=== PATIENT | male | born 1990 | race Caucasian/White ===

== ENCOUNTER 2019-08-08 16:53 | Emergency (ER) | payer SELFPAY ==
[2019-08-08 16:58] VITALS: BP 144/81
[2019-08-08] MEDS ORDERED: LIDOCAINE 1% INJ-PF (10 MG/ML) 30 ML SDV INJ ONE (17:26)
--- NOTE | 2019-08-08 17:28 | ER Document Report ---
HPI - HPI Time Seen by Provider: 08/08/19 17:18 Context: Patient is a 29-year-old male who presents to the emergency department with 2 chief complaints. His first complaint is of his left wrist. He states that it hurts. Denies any injury to it. 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 Patient is predominantly right-handed. Second complaint is that he has a possible abscess noted to his left thumb at the base of his fingernail on the medial side. He attempted to clyde the abscess with a needle, but states that only blood had come out. Denies any purulent drainage. Denies fever, body aches, or chills. Both symptoms started about a week ago. - CONSTITUTIONAL Constitutional: DENIES: Fever, Chills - MUSCULOSKELETAL Musculoskeletal: REPORTS: Extremity pain - left wrist and thumb - DERM Skin Color: Normal Skin Problems: Pustule - left distal, medial thumb at base of fingernail Past Medical History - General Information source: Patient - Social History Smoking Status: Unknown if Ever Smoked Family History: Reviewed & Not Pertinent Past Surgical History: Reports: Hx Appendectomy, Hx Kidney (Renal Surgery) - Immunizations Hx Diphtheria, Pertussis, Tetanus Vaccination: Yes Vertical Provider Document - CONSTITUTIONAL Agree With Documented VS: Yes Exam Limitations: No Limitations General Appearance: No Apparent Distress - INFECTION CONTROL TRAVEL OUTSIDE OF THE [place] IN LAST 30 DAYS: No - HEENT HEENT: Atraumatic, Normocephalic, PERRLA - RESPIRATORY Respiratory: No Respiratory Distress - CARDIOVASCULAR Cardiovascular: Regular Rhythm Pulses: Normal: Radial - MUSCULOSKELETAL/EXTREMETIES Musculoskeletal/Extremeties: FROM, Tender - Left lateral wrist; left distal thumb at base of medial thumb - NEURO Level of Consciousness: Awake, Alert, Appropriate Motor/Sensory: No Motor Deficit, No Sensory Deficit - DERM Integumentary: Abscess - left medial thumb at base of nail Course - Re-evaluation Re-evalutation: 08/08/19 Differential diagnosis includes but normal limited to: abscess, dermoid cyst, sebaceous cyst, furnucle, or others. Patient's x-ray was negative for any fracture or dislocation. He has a splint and I instructed him to continue wearing the splints at home. He will follow-up with orthopedics as needed. Based on patient's physical exam and history, this is a paronychia. It was drained in the ER. There is surrounding cellulitis. I do not believe the patient has underlying necrotizing fasciitis. Based on patient's physical exam and these factors, they will be treated with antibiotics. Follow-up precautions were given. Verbal discharge instructions were given to the patient. They verbalized understanding. They are stable for discharge. - Vital Signs Vital signs: Temp Pulse Resp BP Pulse Ox 97.9 F 101 H 20 144/81 H 98 08/08/19 16:57 08/08/19 16:57 08/08/19 16:57 08/08/19 16:57 08/08/19 16:57 Procedures - Incision and Drainage Left Distal Finger Thumb Type: Simple Anesthetic type: 1% Lidocaine mL's of anesthetic: 15 Blade size: 11 I&D procedure: Betadine prep applied Incision Method: Incision made by scalpel Amount/type of drainage: 3 mls;blood and purulent drainage Hands back picture: 1 - paronychia Discharge - Discharge Clinical Impression: Paronychia, Left wrist pain Condition: Stable Disposition: HOME, SELF-CARE Additional Instructions: You are seen today in the emergency department for left wrist pain. Your x-ray was normal. Please continue to wear your splint. Please follow-up with or thopedics as needed. You are also seen for a paronychia, which is an abscess that is by the fingernail. You are being started on antibiotics. Please take all your antibiotics as prescribed. Follow-up with primary care provider regards to this visit. Keep the area clean and dry. Prescriptions: Sulfamethoxazole/Trimethoprim [Bactrim Ds Tablet] 1 each PO BID 7 Days #14 tablet Cephalexin Monohydrate [Keflex 500 mg Capsule] 500 mg PO Q6H 7 Days #28 capsule Referrals: CATHY HOLLINS MD [ACTIVE STAFF] - Follow up as needed DAVID CHE JR, DO [ACTIVE PROVISIONAL STAFF] - Follow up as needed HARESH MENEZES MD [ACTIVE PROVISIONAL STAFF] - Follow up as needed
--- NOTE | 2019-08-08 17:49 | RADIOLOGY REPORT (SQ) ---
EXAM DESCRIPTION: WRIST LEFT 3 VIEWS COMPLETED DATE/TIME: 08/08/2019 5:36 pm REASON FOR STUDY: wrist pain COMPARISON: None. NUMBER OF VIEWS: Three views. TECHNIQUE: AP, lateral, and oblique radiographic images acquired of the left wrist. LIMITATIONS: None. FINDINGS: MINERALIZATION: Normal. BONES: No acute fracture or dislocation. No worrisome bone lesions. Normal alignment. SOFT TISSUES: No soft tissue swelling. No foreign body. OTHER: No other significant finding. IMPRESSION: No fracture or dislocation of the left wrist. The carpus is normally aligned. The join t spaces are preserved. No radiographic findings to explain pain. TECHNICAL DOCUMENTATION: JOB ID: [id number] [employer]- All Rights Reserved Reading location - IP/workstation name: [email or web address]
[2019-08-08] MEDS ORDERED: CEPHALEXIN 500 MG CAPSULE PO ONE (19:02)
[2019-08-08] MEDS ORDERED: ACETAMINOPHEN 325 MG TABLET PO ONE (19:03)
[2019-08-08] MEDS ORDERED: IBUPROFEN 600 MG TABLET PO ONE (19:03)
[2019-08-08] MEDS ORDERED: SULFAMETHOXAZOLE/TRIMETHOPRIM 800-160 MG TABLET PO ONE (19:03)
== END 2019-08-08 19:15 | disposition home or self-care (01) ==
LOC: ER 16:53
DX: L03.012 Cellulitis of left finger (principal); M25.532 Pain in left wrist
CPT/HCPCS: 99283; 73110; 10060; J3490